=== PATIENT | female | born 1965 | race Caucasian/White ===

== ENCOUNTER 2018-10-06 09:08 | Day surgery (SDC) | payer OTHER ==
[~2018-10-06] VITALS: Ht 154.9 cm; Wt 61.4 kg
[2018-10-06] MEDS ORDERED: LIDOCAINE 4% SOLUTION 50 ML BTL ONE (10:46)
[2018-10-06 10:52] VITALS: Ht 154.9 cm; Wt 61.4 kg
[2018-10-06] MEDS ORDERED: LEVOTHYROXINE PO (10:58)
[2018-10-06] MEDS ORDERED: LISINOPRIL PO (10:58)
[2018-10-06 11:00] VITALS: BP 160/91; PULSE 79; RESP 18
[2018-10-06] MEDS ORDERED: FENTAnyl 50 MCG/ML VIAL ONE (11:28)
[2018-10-06] MEDS ORDERED: MIDAZOLAM 1 MG/ML 2 ML INJ ONE ×2 (11:28)
== END 2018-10-06 11:51 | disposition home or self-care (01) ==
LOC: GIL 09:08
PROVIDERS: ATTEND Internal Medicine Gastroenterology
DX: R19.5 Other fecal abnormalities (principal); K21.0 Gastro-esophageal reflux disease with esophagitis; K31.7 Polyp of stomach and duodenum; K64.1 Second degree hemorrhoids
CPT/HCPCS: 43239; 45378; 84703; 88305; 88312; 88313; J2250; J3010; Z7610